=== PATIENT | male | born 1945 | race Caucasian/White ===

== ENCOUNTER 2022-01-05 12:20 | Emergency (ER) | payer SELFPAY ==
[2022-01-05] MEDS ORDERED: Sodium Chloride 0.9% 10 ML Syringe FLUSH PRN (12:45)
[2022-01-05] MEDS ORDERED: Sodium Chloride 0.9% 1,000 ML IV STA (13:04)
[2022-01-05] MEDS ORDERED: Ondansetron 4 MG/2 ML SDV IVPUSH ONE (13:04)
[2022-01-05] MEDS ORDERED: Pantoprazole 40 MG Vial IVPUSH ONE (13:06)
[2022-01-05] MEDS ORDERED: Famotidine 20 MG/2 ML SDV IVPUSH ONE (13:07)
[2022-01-05] MEDS ORDERED: Alum Hydrox/Mag Hydrox/Simeth 30 ML, Lidocaine 2% 15 ML PO ONE ×2 (13:30)
== END 2022-01-05 15:14 | disposition home or self-care (01) ==
LOC: JD.ED 12:20
DX: K21.9 Gastro-esophageal reflux disease without esophagitis (principal)
CPT/HCPCS: 36415; 80053; 81001; 83690; 85025; 86140; 96374; 96375; 99284; A9270; J2405; J3490; J7030